=== PATIENT | female | born 1955 | race Two or more races ===

== ENCOUNTER 2016-02-15 11:04 | Emergency (ER) | payer BC ==
[2016-02-15 14:54] VITALS: BP 124/62
--- NOTE | 2016-02-15 15:29 | UC ---
Abdominal Pain Female HPI - HPI Summary HPI Summary: Started having crampy, watery diarrhea 3-6 times per day starting 10 days ago while she was in [place] like she got an amoeba or parasite. Denies fever, vomiting, or blood in stool. Took loperimide for travel, then went 5 days with no stool at all, now loose stool has returned. 6 times yesterday, 2 times so far today. - History of Current Complaint Chief Complaint: UCGI Stated Complaint: DIARRHEA Time Seen by Provider: 02/15/16 15:04 Hx Obtained From: Patient ?: No Onset/Duration: Gradual Onset, Lasting Days Timing: Constant Severity Initially: Moderate Severity Currently: Mild Location: Diffuse Radiates: No Character: Cramping Aggravating Factor(s): Nothing Alleviating Factor(s): Nothing Associated Signs and Symptoms: Positive: Diarrhea. Negative: Fever, Constipation, Vomiting Allergies/Adverse Reactions: Allergies Allergy/AdvReac Type Severity Reaction Status Date / Time Sulfa Antibiotics Allergy Severe Anaphylatic Verified 02/15/16 14:55 Shock Home Medications: Home Medications Multiple Vitamins W/ Minerals [Vitamins & Minerals] 1 tab PO DAILY 02/15/16 [ History Confirmed 02/15/16] PMH/Surg Hx/FS Hx/Imm Hx Previously Healthy: Yes - Surgical History Surgical History: Yes Surgery Procedure, Year, and Place: TONSILLECTOMY, APPENDECTOMY, SPLENECTOMY - Family History Known Family History: Negative: Hypertension - Social History Lives: With Family Alcohol Use: Occasionally Substance Use Type: None Smoking Status (MU): Never Smoked Tobacco Review of Systems Constitutional: Negative Skin: Negative Eyes: Negative ENT: Negative Respiratory: Negative Cardiovascular: Negative Gastrointestinal: Abdominal Pain, Diarrhea Genitourinary: Negative Motor: Negative Neurovascular: Negative Musculoskeletal: Negative Neurological: Negative Psychological: Negative All Other Systems Reviewed And Are Negative: Yes Physical Exam Triage Information Reviewed: Yes Appearance: Well-Appearing, No Pain Distress, Well-Nourished Vital Signs: Initial Vital Signs Temp 99.8 F 02/15/16 14:48 Pulse 73 02/15/16 14:48 Resp 16 02/15/16 14:48 BP 124/62 02/15/16 14:48 Pulse Ox 97 02/15/16 14:48 Vital Signs Reviewed: Yes Eye Exam: Normal Eyes: Positive: Conjunctiva Clear ENT Exam: Normal ENT: Positive: Normal ENT inspection, Hearing grossly normal, Pharynx normal, TMs normal Dental Exam: Normal Neck exam: Normal Respiratory Exam: Normal Respiratory: Positive: Chest non-tender, Lungs clear, Normal breath sounds, No respiratory distress, No accessory muscle use Cardiovascular Exam: Normal Cardiovascular: Positive: RRR, No Murmur Abdomen Description: Positive: Nontender, Soft. Negative: CVA Tenderness (R), CVA Tenderness (L) Musculoskeletal Exam: Normal Neurological Exam: Normal Psychological Exam: Normal Skin Exam: Normal Abd Pain Female Course/Dx - Differential Dx/Diagnosis Provider Diagnoses: diarrhea Discharge - Discharge Plan Condition: Stable Disposition: HOME Prescriptions: Metronidazole [Flagyl 500 MG TAB] 500 mg PO BID #14 tab Patient Education Materials: Giardiasis (ED) Referrals: Vamsi Navas MD [Primary Care Provider] - Additional Instructions: Please wait to start your pills until you have collected a stool sample. I am treating you for giardia, but if the stool tests show a different infection we will need to start a different medication.
== END 2016-02-15 15:50 | disposition home or self-care (01) ==
LOC: UCEAST 11:04
DX: R19.7 Diarrhea, unspecified (principal); Z88.2 Allergy status to sulfonamides
CPT/HCPCS: 99212; G0463

== ENCOUNTER 2018-08-17 10:31 | Emergency (ER) | payer BC ==
[2018-08-17 10:59] VITALS: BP 107/65
--- NOTE | 2018-08-17 12:19 | UC ---
Lower Extremity/Ankle HPI - HPI Summary HPI Summary: 62 y/o female presents to the urgent care c/o on monday pt hit her 5th toe on the right on a bed, and it is bruised and swollen. - History of Current Complaint Chief Complaint: UCLowerExtremity Stated Complaint: TOE ON RT FOOT Time Seen by Provider: 08/17/18 12:11 Hx Obtained From: Patient ?: No Onset/Duration: Sudden Onset, Lasting Days - 2 days ago, Still Present, Worse Since - today w/ walking Severity Initially: Moderate Severity Currently: Moderate Pain Intensity: 6 Pain Scale Used: 0-10 Numeric Aggravating Factor(s): Ambulation Alleviating Factor(s): Rest, Elevation, OTC Meds - Aleve daily Able to Bear Weight: Yes - Risk Factors Gout Risk Factors: Negative DVT Risk Factors: Negative Septic Arthritis Risk Factor: Negative - Allergies/Home Medications Allergies/Adverse Reactions: Allergies Allergy/AdvReac Type Severity Reaction Status Date / Time Sulfa (Sulfonamide Allergy Anaphylatic Verified 08/17/18 10:59 Antibiotics) Shock PMH/Surg Hx/FS Hx/Imm Hx Previously Healthy: Yes - Pt denies PMHX - Surgical History Surgical History: Yes Surgery Procedure, Year, and Place: TONSILLECTOMY, APPENDECTOMY, SPLENECTOMY - Family History Known Family History: Negative: Hypertension Family History: lung cancer - Social History Occupation: Unemployed Lives: With Family Alcohol Use: Occasionally Substance Use Type: None Smoking Status (MU): Never Smoked Tobacco Review of Systems All Other Systems Reviewed And Are Negative: Yes Constitutional: Positive: Negative Skin: Positive: Bruising - RT pinky toe w/ swellin gs/p injury Eyes: Positive: Negative ENT: Positive: Negative Respiratory: Positive: Negative Cardiovascular: Positive: Negative Gastrointestinal: Positive: Negative Genitourinary: Positive: Negative Motor: Positive: Negative Neurovascular: Positive: Negative Musculoskeletal: Positive: Decreased ROM - Rt pinky finger, Other: - Rt pinky finger pain s/p injury Neurological: Positive: Negative Psychological: Positive: Negative Is Patient Immunocompromised?: No Physical Exam - Summary Physical Exam Summary: Vital Signs Reviewed: Yes General : well developed, well nourished female w/o any apparent distress Eyes: Positive: Conjunctiva Clear - PERRLA, EOMI ENT: Positive: Normal ENT inspection, Hearing grossly normal, Pharynx normal, TMs normal Neck: Positive: Supple, Nontender, No Lymphadenopathy Respiratory: Positive: Chest non-tender, Lungs clear, Normal breath sounds, No respiratory distress Cardiovascular: Positive: RRR, No Murmur, Pulses Normal Abdomen Description: Positive: Nontender, No Organomegaly, Soft. Negative: CVA Tenderness (R), CVA Tenderness (L) Bowel Sounds: Positive: Present Musculoskeletal: Positive: Strength Intact, ROM Intact, No Edema, Other: - Foot/ Toes: Pt is able to bear weight but ambulate with mild limping. RT foot :No surface trauma, ecchymosis, erythema, lesions, ulcers or break in skin integrity. The R foot is without obvious asymmetry or deformity when compared to the L foot. No bony step-off, No tenderness to palpation over toes, point tenderness over the dorsal side of mid foot and base of the 4th and 5th metatarsal and sole at the same level, no tenderness of hindfoot, Decrease plantar/dorsiflexion, inversion/eversion due to pain. Distal motor and neurovascular status are intact. Neurological Exam: Normal Psychological Exam: Normal Skin Exam: Normal Triage Information Reviewed: Yes Vital Signs: Initial Vital Signs Temp 98.2 F 08/17/18 10:53 Pulse 69 08/17/18 10:53 Resp 18 08/17/18 10:53 BP 107/65 08/17/18 10:53 Pulse Ox 96 08/17/18 10:53 Lower Extremity Course/Dx - Course Course Of Treatment: Pt given ibuprofen at the clinic by nurse to alleviate symptoms. Pt tolerated well medication and felt better. RT fifth toe X-ray ordered, IMPRESSION: Fractures through the proximal end of the middle phalanx of the fifth digit as well as in the proximal phalanx of the fifth digit as per radiologist. Pt's foot immobilized with w/ a CAM boot. Pt declined crutches. Advised RICE, and Rx Ibuprofen PO for pain, Advised to f/u with Orthopedic DR Pinedo referral for further evaluation and treatment on her toe fracture. D/C instructions explained. Pt understood and agreed with D/C instructions and left clinic ambulating. - Differential Dx/Diagnosis Differential Diagnosis/HQI/PQRI: Arthritis, Contusion, Dislocation, Fracture ( Closed), Sprain, Strain, Tendonitis Provider Diagnosis: Fracture of fifth toe, right, closed Discharge - Sign-Out/Discharge Documenting (check all that apply): Patient Departure - d/c home All imaging exams completed and their final reports reviewed: Yes - Discharge Plan Condition: Stable Disposition: HOME Prescriptions: Ibuprofen TAB* [Motrin TAB* 800 MG] 800 mg PO Q6H PRN #30 tab PRN Reason: Pain Patient Education Materials: Toe Fracture (ED) Referrals: [facility] GALINDO,JOSIE Zepeda [Primary Care Provider] - 3 Days Win Burrows MD [Medical Doctor] - 1 Day Additional Instructions: 1-Please take Ibuprofen PO q6-8hrs after meals as directed to alleviate pain and swelling. 2-Please apply ice, keep your foot immobilized with the CAM boot. Avoid strenuous exercise or standing for long periods of time. elevate your foot to decrease swelling 3- Please f/u with Orthopedic Dr Burrows in 1-2 days for further evaluation and treatment on your toe fracture - Billing Disposition and Condition Condition: STABLE Disposition: Home
[2018-08-17] MEDS ORDERED: Ibuprofen TAB* 400 MG PO ONE (12:29)
== END 2018-08-17 13:31 | disposition home or self-care (01) ==
LOC: UCEAST 10:31
DX: S90.121A Contusion of right lesser toe(s) without damage to nail, initial encounter (principal); S92.511A Displaced fracture of proximal phalanx of right lesser toe(s), initial encounter for closed fracture; W22.03XA Walked into furniture, initial encounter; Y92.003 Bedroom of unspecified non-institutional (private) residence as the place of occurrence of the external cause
CPT/HCPCS: 99213; A9270-GY; G0463

== ENCOUNTER 2019-01-25 10:01 | Emergency (ER) | payer BC ==
--- OUTSIDE RECORDS SUMMARY | 2019-01-25 10:06 | XMS REPORT | Continuity of Care Document ---
:1955 External Reference #:[id number] Author Name Saurabh Kumar MD (transmitted by agent of provider Joanne Chavarria) Address [address], [place] [address] Care Team Providers Name Role Phone Patient's Choice Care Team Information Construction Producer Unavailable Lucy Cotton FNP-BC - Family Care Team Information Construction Producer [phone] Problems Active Problems Provider Date Closed fracture of phalanx of foot Clint Sosa MD Onset: 08/21/2018 Social History Type Date Description Comments Sex Unknown ETOH Use Occasionally consumes alcohol ETOH Use Drinks 2 Alcoholic Beverages Per Week Tobacco Use Start: Unknown Patient has never smoked Recreational Drug Use Denies Drug Use Smoking Status Reviewed: 12/10/18 Patient has never smoked Exercise Type/Frequency Exercises sporadically Allergies, Adverse Reactions, Alerts Active Allergies Reaction Severity Comments Date Sulfa Antibiotics 04/14/2015 Inactive Allergies NKDA 11/13/2014 Medications Active Medications SIG Qnty Indications Ordering Provider Date Alive Once Daily Womens 1 daily Unknown 50+ Ultra Potency Tablets Vitamin B12 1 by mouth every Unknown 500mcg Tablets day Immunizations Description No Information Available Vital Signs Date Vital Result Comment 12/10/2018 8:24am Height 66 inches 5'6" Weight 183.50 lb Heart Rate 88 /min BP Systolic Sitting 124 mmHg BP Diastolic Sitting 78 mmHg Respiratory Rate 15 /min BMI (Body Mass Index) 29.6 kg/m2 10/05/2018 8:48am Height 66 inches 5'6" Heart Rate 82 /min Respiratory Rate 18 /min Body Temperature 97.5 F Pain Level 0 Results Description No Information Available Procedures Description No Information Available Medical Devices Description No Information Available Encounters Type Date Location Provider Dx Diagnosis Office Visit 12/10/2018 [facility] Saurabh Kumar, G25.0 Essential tremor 8:30a [facility] Office Visit 10/05/2018 [facility] Clintwandy Sosa, S92.534D Nondisp fx of 8:30a at [place] dist phalanx of r less toe(s), 7thD Office Visit 08/21/2018 [facility] Clint Sosa, S92.534A Nondisp fx of 1:30p at [place] distal phalanx of right lesser toe(s), init Assessments Date Code Description Provider 12/10/2018 G25.0 Essential tremor Saurabh Kumar MD 10/05/2018 S92.534D Nondisplaced fracture of distal phalanx of Clint Sosa MD right lesser toe(s), subsequent encounter for fracture with routine healing 08/21/2018 S92.534A Nondisplaced fracture of distal phalanx of Clint Sosa MD right lesser toe( Plan of Treatment 12/10/2018 - Saurabh Kumar MDG25.0 Essential tremorComments:She has intention tremor bilaterally that is most likely familial and she has no signs of Parkinsons. Discussed aggravating factors such as caffeine, stress and hunger. Discussed role of medication such as inderal for her if the tremor gets worse and bothers her more (the inderal may help her anxiety as well)- they were aware of deep brain stimulation but that is not appropriate for her to consider. SHe has had normal thyroid testing and I do not think any further workup is needed and I will be glad to see her back if things get worse.Follow up:Follow up as needed. Functional Status Description No Information Available Mental Status Description No Information Available Referrals Description No Information Available
[2019-01-25 10:11] VITALS: BP 103/57
--- NOTE | 2019-01-25 10:18 | UC ---
Minor Trauma HPI - HPI Summary HPI Summary: 63-year-old female presents with complaints of left lateral chest wall pain. Patient states that on 01/10/2019 she was sitting in a chair and she slipped striking the left side of her chest on the arm of the chair. States she has had some persistent pain to the left lateral chest wall that waxes and wanes in intensity. Pain tends to worsen with bending, lifting, and taking a deep breath. States she has taken ibuprofen with some relief in the pain. Denies fever, chills, cough, shortness of breath, or bruising. - History of Current Complaint Chief Complaint: UCGeneralIllness Stated Complaint: rib injury Time Seen by Provider: 01/25/19 10:12 Hx Obtained From: Patient Pain Intensity: 7 - Allergies/Home Medications Allergies/Adverse Reactions: Allergies Allergy/AdvReac Type Severity Reaction Status Date / Time Sulfa (Sulfonamide Allergy Anaphylatic Verified 01/25/19 10:03 Antibiotics) Shock Home Medications: Home Medications NK [No Home Medications Reported] 01/25/19 [History Confirmed 01/25/19] PMH/Surg Hx/FS Hx/Imm Hx Previously Healthy: Yes - Denies significant PMH - Surgical History Surgical History: Yes Surgery Procedure, Year, and Place: TONSILLECTOMY, APPENDECTOMY, CHOLECYSTECTOMY - Family History Family History: lung cancer - Social History Occupation: Works From/At Home Lives: With Family Alcohol Use: Occasionally Substance Use Type: None Smoking Status (MU): Never Smoked Tobacco Review of Systems All Other Systems Reviewed And Are Negative: Yes Constitutional: Negative: Fever, Chills Skin: Negative: Bruising Respiratory: Negative: Shortness Of Breath, Cough Gastrointestinal: Positive: Negative Genitourinary: Positive: Negative Musculoskeletal: Positive: Other: - See HPI Neurological: Positive: Negative Is Patient Immunocompromised?: No Physical Exam - Summary Physical Exam Summary: GENERAL APPEARANCE: Well developed, well nourished, alert and cooperative, and appears to be in no acute distress. EYES: Conjunctiva clear. No drainage. EARS: External auditory canals and tympanic membranes clear, hearing grossly intact. NOSE: No nasal discharge. THROAT: Pharynx normal No tonsilar inflammation, swelling, exudate, or lesions. Uvula midline. Oral cavity normal. Teeth and gingiva in good general condition. NECK: Neck supple, non-tender without lymphadenopathy. CARDIAC: Normal S1 and S2. No S3, S4 or murmurs. Rhythm is regular. There is no peripheral edema, cyanosis or pallor. Extremities are warm and well perfused. Capillary refill is less than 2 seconds. Peripheral pulses intact. LUNGS: Tenderness to the left, mid, lateral chest wall without crepitus or eccymosis. Clear to auscultation without rales, rhonchi, wheezing or diminished breath sounds. ABDOMEN: Positive bowel sounds. Soft, nondistended, nontender. No guarding or rebound. No masses or hepatosplenomegally. MUSKULOSKELETAL: ROM intact to all extremities. No joint erythema or tenderness. Normal muscular development. Normal gait. SKIN: Skin normal color, texture and turgor with no lesions or eruptions. Triage Information Reviewed: Yes Vital Signs: Initial Vital Signs Temp 98.1 F 01/25/19 10:06 Pulse 69 01/25/19 10:06 Resp 16 01/25/19 10:06 BP 103/57 01/25/19 10:06 Pulse Ox 98 01/25/19 10:06 Vital Signs Reviewed: Yes Diagnostics - Radiology No standard instances Radiology Interpretation Completed By: Radiologist Summary of Radiographic Findings: Order Information: RIBS LT UNI W/PA CH MIN 3 VWS. INDICATION: Left rib injury. COMPARISON: There are no relevant prior studies available for comparison. TECHNIQUE: 4 views of the left ribs and dual- energy PA views of the chest were obtained. FINDINGS: The lungs are clear. There is no pleural effusion or pneumothorax. The cardiomediastinal silhouette is within normal limits. The upper abdominal contents are normal. There are surgical clips in the right upper quadrant. No displaced rib fracture is identified. IMPRESSION: NO PNEUMOTHORAX OR DISPLACED RIB FRACTURE IDENTIFIED. Minor Trauma Course/Dx - Course Course Of Treatment: 63-year-old female presents with complaints of left lateral chest wall pain. Patient states that on 01/10/2019 she was sitting in a chair and she slipped striking the left side of her chest on the arm of the chair. States she has had some persistent pain to the left lateral chest wall that waxes and wanes in intensity. Pain tends to worsen with bending, lifting, and taking a deep breath. States she has taken ibuprofen with some relief in the pain. Denies fever, chills, cough, shortness of breath, or bruising. Afebrile. Vital signs stable. Patient had tenderness to the left, mid, lateral chest wall without crepitus or eccymosis, clear to auscultation without rales, rhonchi, wheezing or diminished breath sounds, and otherwise unremarkable exam. Chest x-ray and rib x-rays were obtained and showed no acute cardiopulmonary pathology or rib fracture. Results were reviewed with the patient. Recommending conservative treatment for a chest wall contusion. She is to follow-up with her primary care provider in 3-5 days if symptoms persist. Anticipatory guidance and warning symptoms were reviewed with the patient. Verbalizes understanding and agrees with plan of care. - Differential Dx/Diagnosis Differential Diagnosis/HQI/PQRI: Contusion(s), Fracture, Other - pneumothorax, pneumonia Provider Diagnosis: Chest wall contusion Discharge ED - Sign-Out/Discharge Documenting (check all that apply): Patient Departure All imaging exams completed and their final reports reviewed: Yes - Discharge Plan Condition: Stable Disposition: HOME Patient Education Materials: Chest Wall Pain (ED) Referrals: [facility] GALINDO,JOSIE Zepeda [Primary Care Provider] - 3 Days Additional Instructions: The chest x-ray and rib x-rays were performed in the clinic today showed no rib fractures and no evidence of pneumonia. I suspect that you have a contusion ( bruise) of the chest wall. Continue to take ibuprofen (Advil, Motrin) 600 mg every 8 hours as needed for pain. You can try applying ice, heat, or alternating ice and heat to the affected area for 15-20 minutes every couple of hours to help with the pain. Do some deep breathing exercises which were discussed with you in the clinic every couple of hours while awake to help prevent complications such as pneumonia. Follow-up with your primary care provider in 3-5 days if symptoms persist. Seek immediate medical attention in the emergency room if you develop a fever greater than 100.5 F, have worsening pain, difficulty breathing, or have any worsening of symptoms. - Billing Disposition and Condition Condition: STABLE Disposition: Home
== END 2019-01-25 11:42 | disposition home or self-care (01) ==
LOC: UCEAST 10:01
DX: S20.212A Contusion of left front wall of thorax, initial encounter (principal); Z88.2 Allergy status to sulfonamides; W22.03XA Walked into furniture, initial encounter; Y92.9 Unspecified place or not applicable
CPT/HCPCS: 99211; G0463